=== PATIENT | female | born 2000 | race American Indian/Alaskan Native ===

== ENCOUNTER 2021-11-20 06:18 | Day surgery (SDC) | payer OTHER ==
[2021-11-20] MEDS ORDERED: LACTATED RINGERS 1,000 ML ONE (07:11)
[2021-11-20] MEDS ORDERED: LACTATED RINGERS 1,000 ML IV ONE (07:15)
--- NOTE | 2021-11-20 07:27 | Anesthesia Consultation ---
Anesthesia Consult and Med Hx Date of service: 11/20/21 - Airway Anesthetic Teeth Evaluation: Good ROM Head & Neck: Adequate Mental/Hyoid Distance: Adequate Mallampati Class: Class I Intubation Access Assessment: Good - Pulmonary Exam CTA: Yes - Cardiac Exam Cardiac Exam: RRR - Pre-Operative Health Status ASA Pre-Surgery Classification: ASA1 Proposed Anesthetic Plan: MAC - Pulmonary Hx Smoking: No Hx Asthma: No Hx Sleep Apnea: No - Cardiovascular System Hx Hypertension: No Hx Heart Attack/AMI: No - Central Nervous System Hx Seizures: No CVA: No Hx Psychiatric Problems: No - Gastrointestinal Hx Gastroesophageal Reflux Disease: No - Endocrine Hx Renal Disease: No Hx Liver Disease: No Hx Non-Insulin Dependent Diabetes: No Hx Thyroid Disease: No - Other Systems Hx Alcohol Use: No Hx Substance Use: No Hx Cancer: No Hx Obesity: No - Additional Comments Anesthesia Medical History Comments: No hx of anesthetic complications
--- NOTE | 2021-11-20 07:27 | Short Stay Summary ---
Short Stay Documentation Date of service: 11/20/21 Narrative H&P: 21y/o G0 with a Nexplanon device in her left arm that is not palpable. The device was unable to be removed in the office. The device is . - History Principal diagnosis: Retained device Past Medical History: No medical history Past Surgical History: No surgical history Social history: single - Allergies and Medications Current Medications: Allergies No Known Allergies Allergy (Unverified 11/12/21 15:25) Home Medications Medication Instructions Recorded Confirmed Last Taken Type No Known Home Medications [No 11/12/21 11/12/21 Unknown History Reported Home Medications] - Physical exam General appearance: no acute distress Integumentary: no rash Lungs: Clear to auscultation Breasts: deferred Heart: Regular rate Gastrointestinal: normal Female Genitourinary: deferred Rectal Exam: deferred - Brief post op/procedure progress note Date of procedure: 11/20/21 Pre-op diagnosis: Foreign object Post-op diagnosis: same Procedure: Removal of Nexplanon device Anesthesia: MAC, local Surgeon: LARRY BAIRD Estimated blood loss: minimal Pathology: list (Nexplanon) Specimen disposition: to lab Condition: stable - Hospital course Hospital course: The patient was admitted the day of surgery underwent removal of her Nexplanon device under ultrasound guidance. Please see operative note for details of surgery. Her postoperative course was uneventful. - Disposition Condition at discharge: Good Disposition: 01 HOME / SELF CARE / HOMELESS Short Stay Discharge Plan Activity: no restrictions Diet: regular Additional Instructions: Follow-up is not required Follow-up is needed Prescriptions: Ibuprofen [Motrin] 800 mg PO Q8HR PRN #30 tablet PRN Reason: Pain , Severe (7-10) HYDROcodone/APAP 5-325 [Perry 5/325] 1 each PO Q6HR PRN #15 tablet PRN Reason: Pain
--- NOTE | 2021-11-20 07:27 | Anesthesia Day of Surgery ---
Anesthesia Day of Surgery - Day of Surgery Patient Examined: Yes Patient H&P Reviewed: Yes Patient is NPO: Yes
[2021-11-20] MEDS ORDERED: propofoL 200 MG/20 ML VIAL IV ONE ×2 (07:48→08:26)
[2021-11-20] MEDS ORDERED: ONDANSETRON 4 MG/2 ML INJ ONE (07:51)
[2021-11-20] MEDS ORDERED: BUPIVACAINE/PF (0.5%) 5 MG/1 ML 30 ML VIAL INFILTRATI ONE (07:51)
[2021-11-20] MEDS ORDERED: KETOROLAC 30 MG/1 ML INJ ONE (07:51)
[2021-11-20] MEDS ORDERED: LIDOCAINE MPF (2%) 20 MG/1 ML VIAL 5 ML ONE ×2 (07:51→08:25)
[2021-11-20] MEDS ORDERED: MIDAZOLAM 2 MG/2 ML INJ ONE (08:02)
[2021-11-20] MEDS ORDERED: SODIUM CHLORIDE 0.9% IRR 1,500 ML BOTTLE IR ONE (09:00)
--- NOTE | 2021-11-20 09:10 | Operative Report ---
Operative Report Operative Report: Date of procedure: November 20, 2021 Pre-operative diagnosis: Retained foreign object Post-operative diagnosis: Same as above Procedure name(s): Removal of the Nexplanon device Surgeon: Cynthia Gutiérrez M.D. Home Worker: None Estimated blood loss: Minimal Anesthesia: MAC Findings Nexplanon device in left upper extremity Indication: 21-year-old G0 who presents with a retained Nexplanon device in her left arm. The device was not palpable in the office and was unable to be removed. Procedure The patient was taken to the operating room and a timeout was performed that confirmed the patient's identity and the procedure. She was prepped and draped in a normal sterile fashion. Her anesthesia was found to be adequate. The surgical site was injected with 2% lidocaine. A linear incision was made at the location of the device. Under ultrasound guidance the device was located. A curved hemostat was placed underneath the skin incision with location of the device and removal. The skin incision was then closed with 4-0 Monocryl. Dermabond was placed over the incision. A pressure dressing was applied. The patient was taken to the recovery room in stable condition. All sponge laps and needle counts correct x2. Pathology specimen was Nexplanon device
[2021-11-20 10:36] VITALS: BP 105/60
--- NOTE | 2021-11-20 14:55 | Ultrasound Report ---
US guide intraoperative INDICATION / CLINICAL INFORMATION: NEXPLANON REMOVAL TECHNIQUE: Intraoperative sonographic images were obtained during the procedure. FINDINGS: Intraoperative sonographic images for Dr. Gutiérrez. See operative/procedure note by performing physician for full details. Ultrasound Images: 3. Scribed by: Roselyn Cannon RDMS, RVT, RMSKS Scribed: 11/20/2021 1:23 PM I have reviewed the images, agree with this report, and edited this report as needed. Signer Name: Santy Aguilera MD Signed: 11/20/2021 2:51 PM Workstation Name: [id number]
--- NOTE | 2021-11-20 17:20 | Post Anesthesia Evaluation ---
- Post Anesthesia Evaluation Patient Participated: Yes Airway Patent: Yes Stable Respiratory Function: Yes Nausea/Vomiting: No Temp > 96.8F: Yes Pain Manageable: Yes Adequeate Hydration: Yes Anesthesia Complications: No Block Receding Appropriately: Not Applicable Patient on Ventilator: No
== END 2021-11-20 10:55 | disposition home or self-care (01) ==
LOC: OR 06:18
PROVIDERS: ATTEND Obstetrics & Gynecology
DX: S40.852A Superficial foreign body of left upper arm, initial encounter (principal); G43.909 Migraine, unspecified, not intractable, without status migrainosus; Z79.899 Other long term (current) drug therapy; Z98.890 Other specified postprocedural states; X58.XXXA Exposure to other specified factors, initial encounter; Y93.89 Activity, other specified; Y92.89 Other specified places as the place of occurrence of the external cause; Y99.8 Other external cause status
CPT/HCPCS: 11982; 76998; 81025; 88300; J1885; J2250; J2405; J2704; J3490; J7120; 88302; J7121